=== PATIENT | female | born 1965 | race Caucasian/White ===

== ENCOUNTER → 2019-04-22 | Outpatient (CLI) | payer BC, SELFPAY ==
--- NOTE | 2019-04-22 10:56 | ECHOD_ITS ---
Reason For Study: Palpitations Procedure This was a 2D Doppler, Color Flow transthoracic echocardiogram. Exam performed in department. Left Ventricle Normal LV size. Left ventricular systolic function is normal. The estimated ejection fraction is 65 %. Stage 2 diastolic dysfunction. No regional wall motion abnormalities noted. Right Ventricle Normal RV size. Normal systolic function. Atria Normal left atrium. Normal right atrium. Mitral Valve Normal mitral valve. Tricuspid Valve Normal tricuspid valve. Aortic Valve Normal aortic valve. Pulmonic Valve Normal pulmonic valve. Great Vessels Normal aortic root. The pulmonary artery is normal size. Normal inferior vena cava. Pericardium/Pleural No pericardial effusion. MMode/2D Measurements & Calculations LVIDd: 4.3 cm IVSd: 1.1 cm LA dimension: 3.3 cm LVIDs: 2.3 cm LVPWd: 0.97 cm RVDd: 3.5 cm FS: 46.4 % LAV(MOD-bp): 35.6 ml LA A4 area: 14.2 cm2 RA A4 area: 11.2 cm2 LAV(MOD-bp) Indexed: 20.0 ml/m2 LAV(MOD-sp2): 35.0 ml LAV(MOD-sp4): 33.0 ml Time Measurements MV dec time: 0.22 sec Doppler Measurements & Calculations MV E max arpit: 98.7 cm/sec Lat Peak E' Arpit: 10.5 cm/sec Med Peak E' Arpit: 13.0 cm/sec MV A max arpit: 81.0 cm/sec E/E' lat: 9.4 E/E' med: 7.6 MV E/A: 1.2 MV V2 max: 95.8 cm/sec MV P1/2t max arpit: 95.8 cm/sec Ao V2 max: 123.1 cm/sec MV max P.7 mmHg MV P1/2t: 38.8 msec Ao max P.1 mmHg MV V2 mean: 58.0 cm/sec MV dec slope: 722.5 cm/sec2 MV mean P.6 mmHg MVA(P1/2t): 5.7 cm2 MV V2 VTI: 18.7 cm LV V1 max: 107.9 cm/sec PA V2 max: 97.3 cm/sec LV V1 max P.7 mmHg Interpretation Summary Normal LV size. Left ventricular systolic function is normal. The estimated ejection fraction is 65 %. Stage 2 diastolic dysfunction. Structurally normal valves. Ordering Physician: Rob Todd Referring Physician: Rob Todd Performed By: Loy Abreu RCS
--- NOTE | 2019-04-22 11:27 | RAD_ITS ---
HISTORY: CHRONIC COUGH, PALPITATIONS EXAM: XR Chest 2 Views: COMPARISON: None FINDINGS: # of images incl. paperwork: 2 Lungs are clear. Heart is not enlarged. No acute osseous pathology perceived. Pulmonary vascularity is distinct. No effusions. RAD/Chest PA and Lateral IMPRESSION: Normal. at 0610 Reported and signed by: Charly Moser MD Electronically Signed: Charly Moser MD at 6:09 EST Tel , Service support ,
== END | disposition home or self-care (01) ==
PROVIDERS: PCP Family Medicine; Referring Provider Family Medicine; Visit Provider Family Medicine
DX: R00.2 Palpitations (principal); R05 Cough
CPT/HCPCS: 71046; 93306